=== PATIENT | male | born 1955 | race American Indian/Alaskan Native ===

== ENCOUNTER 2021-09-26 06:38 | Emergency (ER) | payer OTHER ==
[2021-09-26 06:42] VITALS: BP 135/81
[2021-09-26] MEDS ORDERED: IBUPROFEN 800 MG TAB PO ONE (06:50)
[2021-09-26] MEDS ORDERED: oxyCODONE /ACETAMINOPHEN 5-325MG TAB PO ONE (06:50)
--- NOTE | 2021-09-26 06:58 | Emergency Department Report ---
ED Lower Extremity HPI - General Chief Complaint: Extremity Injury, Lower Stated Complaint: Ankle pain Time Seen by Provider: 09/26/21 06:42 Source: patient Mode of arrival: Stretcher Limitations: No Limitations - History of Present Illness Initial Comments: CC: ankle injury HPI: This is a 66 yo male with hx of HTN and gout who presents with ankle inj ury. While at work, he tripped backwards over a box. He landed on this right foot with ankle hyperextended. Immediate severe pain. He is unable to walk. Arrived via EMS. 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 No other injuries. He denies hip or knee pain. MD Complaint: ankle injury -: Sudden, This morning Injury: Ankle: Right Type of Injury: hyperextension Place: work Severity: severe Severity scale (0 -10): 8 Improves With: nothing Worsens With: weight bearing, movement, palpation Context: fall Associated Symptoms: swelling, unable to bear weight. denies: numbness, tingling - Related Data Previous Rx's Medication Instructions Recorded Last Taken Type Ibuprofen [Motrin 800 MG tab] 800 mg PO Q6H PRN #20 tablet 09/26/21 Unknown Rx oxyCODONE /ACETAMINOPHEN [Percocet 1 tab PO Q6HR PRN #15 tablet 09/26/21 Unknown Rx 5/325] Allergies Allergy/AdvReac Type Severity Reaction Status Date / Time No Known Allergies Allergy Unverified 09/26/21 06:42 ED Review of Systems ROS: Stated complaint: Ankle pain Other details as noted in HPI Respiratory: denies: cough, shortness of breath Cardiovascular: denies: chest pain Gastrointestinal: denies: abdominal pain, nausea, vomiting Musculoskeletal: joint swelling, arthralgia. denies: back pain Neurological: denies: numbness ED Past Medical Hx - Past Medical History Previous Medical History?: Yes Hx Hypertension: Yes Additional medical history: Gout - Surgical History Past Surgical History?: Yes Additional Surgical History: Knee arthroscopy - Social History Smoking Status: Never Smoker Substance Use Type: None - Medications Home Medications: Home Medications Medication Instructions Recorded Confirmed Last Taken Type Ibuprofen [Motrin 800 MG tab] 800 mg PO Q6H PRN #20 tablet 09/26/21 Unknown Rx oxyCODONE /ACETAMINOPHEN [Percocet 1 tab PO Q6HR PRN #15 tablet 11/20/21 Unknown Rx 5/325] ED Physical Exam - General Limitations: No Limitations General appearance: alert, in no apparent distress - Head Head exam: Present: atraumatic, normocephalic - Eye Eye exam: Present: normal appearance - ENT ENT exam: Present: mucous membranes moist - Neck Neck exam: Present: normal inspection - Respiratory Respiratory exam: Present: normal lung sounds bilaterally. Absent: respiratory distress, wheezes, rales, rhonchi - Cardiovascular Cardiovascular Exam: Present: regular rate, normal rhythm, normal heart sounds. Absent: systolic murmur, diastolic murmur, rubs, gallop - GI/Abdominal GI/Abdominal exam: Present: soft, normal bowel sounds. Absent: distended, tenderness, guarding, rebound - Rectal Rectal exam: Present: deferred - Expanded Lower Extremity Exam Right Hip exam: Present: normal inspection, full ROM Upper Leg exam: Present: normal inspection, full ROM Knee exam: Present: normal inspection, full ROM Ankle exam: Present: tenderness, swelling (Global swelling right ankle, edema involving both the medial and lateral malleoli), deformity. Absent: abrasion, laceration, ecchymosis, crepidus, dislocation, erythema, anterior draw sign Foot/Toe exam: Present: normal inspection, full ROM Neuro vascular tendon exam: Present: no vascular compromise - Back Exam Back exam: Present: normal inspection - Neurological Exam Neurological exam: Present: alert, oriented X3 - Psychiatric Psychiatric exam: Present: normal affect, normal mood - Skin Skin exam: Present: warm, dry, intact, normal color. Absent: rash ED Course Vital Signs 09/26/21 09/26/21 06:40 07:33 Temperature 98 F Pulse Rate 58 L Respiratory 18 17 Rate Blood Pressure 135/81 [Left] O2 Sat by Pulse 100 Oximetry ED Lower Extremity MDM - Radiology Data Radiology results: report reviewed Patient Name: JULIA REYES Gender: Male Date of : 1955 Home Phone: Referring Provider: ROBLES LOPEZ Organization: [facility] Accession Number: [id number] Requested Date: September 26, 2021 06:51 Report Status: Final Requested Procedure: 1 Procedure Description: XR ankle 3+V RT Modality: XR Findings Reporting MD: Andrei Jennings Dictation Time: September 26, 2021 06:37 Corporate Director Of Human Resources: Not available Director Of Capital Giving Date: Right ankle, 3 views HISTORY: Injury COMPARISON: None FINDINGS: Mildly displaced oblique fracture of the distal fibula at the syndesmosis. The syndesmosis appears intact. Ankle mortise is symmetric. No additional fracture. There is circumferential soft tissue swelling about the ankle. IMPRESSION: Acute mildly displaced fracture of the distal fibula. Signer Name: Andrei Jennings MD Signed: 09/26/2021 6:37 AM Workstation Name: [id number] - Medical Decision Making Closed mildly displaced distal fibular fracture, extremity neurovascular intact without concomitant injury. Referred to orthopedic surgeon. Prescription for Percocet ibuprofen and crutches provided. Long posterior splint was applied to the right lower extremity under my supervision. After application the extremity was neurovascularly intact with acceptable alignment. Critical care attestation.: If time is entered above; I have spent that time in minutes in the direct care of this critically ill patient, excluding procedure time. ED Disposition Clinical Impression: Closed fracture of right distal fibula Disposition: HOME / SELF CARE / HOMELESS Is pt being admited?: No Does the pt Need Aspirin: No Condition: Stable Instructions: Nondisplaced Fibular Ankle Fracture Treated With Immobilization, Adult Prescriptions: Ibuprofen [Motrin 800 MG tab] 800 mg PO Q6H PRN #20 tablet PRN Reason: Pain , Severe (7-10) oxyCODONE /ACETAMINOPHEN [Percocet 5/325] 1 tab PO Q6HR PRN #15 tablet PRN Reason: Pain Referrals: ANN PRECIADO MD [Staff Physician] - 3-5 Days
--- NOTE | 2021-09-26 07:41 | XRay Report ---
Right ankle, 3 views HISTORY: Injury COMPARISON: None FINDINGS: Mildly displaced oblique fracture of the distal fibula at the syndesmosis. The syndesmosis appears intact. Ankle mortise is symmetric. No additional fracture. There is circumferential soft tis luca swelling about the ankle. IMPRESSION: Acute mildly displaced fracture of the distal fibula. Signer Name: Andrei Jennings MD Signed: 09/26/2021 7:37 AM Workstation Name: [id number]
== END 2021-09-26 09:38 | disposition home or self-care (01) ==
LOC: ED 06:38
DX: S82.401A Unspecified fracture of shaft of right fibula, initial encounter for closed fracture (principal); I10 Essential (primary) hypertension; W22.8XXA Striking against or struck by other objects, initial encounter; Y93.89 Activity, other specified; Y92.89 Other specified places as the place of occurrence of the external cause; Y99.8 Other external cause status
CPT/HCPCS: 99283